=== PATIENT | female | born 1960 | race Caucasian/White ===

== ENCOUNTER → 2016-05-27 | Outpatient (CLI) | payer BC, OTHER ==
--- NOTE | 2016-05-27 17:43 | DX ---
Left Wrist Series, 4 views Indication: Fell in April 2016. Persistent pain. Findings: A transverse subacute distal radius fracture is healing in anatomic alignment. The fractur e is minimally impacted with associated healing callus and bony resorption. No discernible involvemen t of the articular surface. The carpal bones are anatomic. Impression: Subacute transverse distal radius fracture healing in anatomic alignment.
== END ==
LOC: FIMAGING 16:23
PROVIDERS: ATTEND Physician Assistant
DX: S52.322A Displaced transverse fracture of shaft of left radius, initial encounter for closed fracture (principal)

== ENCOUNTER → 2016-08-05 | Outpatient (CLI) | payer BC ==
[~2016-08-05] MED LIST: GADOBUTROL 10 ML VIAL IVP ONE
== END ==
LOC: FIMAGING 10:10
PROVIDERS: ATTEND Internal Medicine Hematology & Oncology
DX: K76.89 Other specified diseases of liver (principal); K86.2 Cyst of pancreas; D30.01 Benign neoplasm of right kidney
CPT/HCPCS: A9585

== ENCOUNTER → 2018-01-06 | Outpatient (CLI) | payer BC | LOC: BMCIMAGING 10:18 | PROVIDERS: ATTEND Internal Medicine Hematology & Oncology | DX: R92.1 Mammographic calcification found on diagnostic imaging of breast (principal); N63.13 Unspecified lump in the right breast, lower outer quadrant ==